=== PATIENT | male | born 1980 | race Hispanic/Latino ===

== ENCOUNTER 2017-12-15 08:47 | Emergency (ER) | payer SELFPAY ==
[2017-12-15] MEDS ORDERED: Ondansetron HCl/PF 4 MG/2 ML Vial ONE (09:23)
[2017-12-15 09:48] LABS: #Lymphocytes 0.3 thou/uL (1.20-3.40); #Monocytes 0.5 thou/uL (0.11-0.59); #Neutrophils 4.5 thou/uL (1.40-6.50); %Basophils 1.2 % (0.0-1.0); %Eosinophils 0.2 % (0.0-10.0); %Lymphocytes 5.2 % (21.0-51.0); %Monocytes 9.7 % (0.0-10.0); %Neutrophils 83.8 % (42.0-75.0); Hemoglobin 14.2 g/dL (14.0-18.0); Mean Corpuscular HGB CONC 32.4 g/dL (32.0-36.0); Mean Corpuscular Volume 89.5 fl (80.0-94.0); Mean Platelet Volume 10.2 fL (7.4-10.4); Platelet Count 97 thou/uL (130-400); RBC Distribution Width 14.3 % (11.5-14.5); Red Blood Cell (RBC) Count 4.93 mill/uL (4.70-6.10); White Blood Cell (WBC) Count 5.5 thou/uL (4.8-10.8)
[2017-12-15 09:49] LABS: Anisocytosis SLIGHT = 6-15 cells (100X) (0-5/hpf); PLT Morphology Comment Appears Decreased
[2017-12-15 09:55] LABS: ALT (SGPT) 88 U/L (8-55); AST (SGOT) 156 U/L (5-34); Albumin 4.5 g/dL (3.5-5.0); Alkaline Phosphatase 142 U/L (40-150); Anion Gap 17 mmol/L (10-20); BUN (Urea Nitrogen) 10 mg/dL (8.9-20.6); Bilirubin, Total 1.4 mg/dL (0.2-1.2); Calc. Creatinine Clearance 0 mL/min (70-130); Calcium 10.1 mg/dL (7.8-10.44); Carbon Dioxide 21 mmol/L (22-29); Chloride 105 mmol/L (98-107); Estimated GFR-MDRD Greater than 90; Globulin 3.4 g/dL (2.4-3.5); Glucose 112 mg/dL (70-105); Magnesium 1.9 mg/dL (1.6-2.6); Potassium 3.9 mmol/L (3.5-5.1); Protein, Total 7.9 g/dL (6.0-8.3); Sodium 139 mmol/L (136-145)
[2017-12-15 10:43] LABS: Amphetamine Not Detected (NotDetected); Barbiturates Screen Not Detected (NotDetected); Benzodiazepine Screen Not Detected (NotDetected); Cocaine Metabolite Screen Not Detected (NotDetected); Medtox Control Line Valid? VALID (VALID); Methadone Not Detected (NotDetected); Methamphetamine Not Detected (NotDetected); Opiate Screen Not Detected (NotDetected); Oxycodone Screen Not Detected (NotDetected); Phencyclidine (PCP) Not Detected (NotDetected); THC/Cannabinoid Screen Not Detected (NotDetected); Tricyclic Screen Not Detected (NotDetected)
--- NOTE | 2017-12-15 11:10 | CT ---
HEAD CT NONCONTRAST: Indication: Syncope. Comparison: None. FINDINGS: There is slight asymmetry of the prominent sized ventricular system with right lateral ventricle grea ter involving the left. There is a focal region of encephalomalacia at the anterior mid right tempora l lobe, as well as involving the anterior right frontal lobe. There is no intracranial hemorrhage, ma ss effect, or midline shift. Subtle areas of diminished density of the cerebral parenchyma are nonspe cific although could relate to minimal areas of gliosis. Mild scattered paranasal sinus mucosal thick ening. IMPRESSION: Focal encephalomalacia of the right temporal lobe, as well as involving the anterior right frontal lo be. Correlate with patient's history as prior imaging comparison is not available. There are also sub tle areas of hypodensity of the cerebral hemispheres, possibly related to gliosis. Consider brain MRI for follow up. POS: [facility]
== END 2017-12-15 11:07 | disposition left against medical advice (07) ==
LOC: MADERS 08:47
DX: R55 Syncope and collapse (principal)
CPT/HCPCS: 36416; 70450; 80053; 80306; 80307; 83735; 85025; 85379; 93005; 96374; J2405